=== PATIENT | male | born 1960 | race Caucasian/White ===

== ENCOUNTER 2016-06-18 07:34 | Emergency (ER) | payer OTHER ==
[2016-06-18 07:44] VITALS: BP 145/89; PULSE 65; TEMP 98; BMI 28.1
[2016-06-18] MEDS ORDERED: IBUPROFEN 600 MG TABLET (FP) PO ONE ×2 (08:17→08:22)
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
== END 2016-06-18 08:33 | disposition home or self-care (01) ==
LOC: JERFT 07:34
DX: S70.12XA Contusion of left thigh, initial encounter (principal); S70.11XA Contusion of right thigh, initial encounter; W20.8XXA Other cause of strike by thrown, projected or falling object, initial encounter; Y93.89 Activity, other specified; Y92.69 Other specified industrial and construction area as the place of occurrence of the external cause; Y99.0 Civilian activity done for income or pay
CPT/HCPCS: 99281-25